=== PATIENT | male | born 1970 | race Caucasian/White ===

== ENCOUNTER → 2018-02-03 | Outpatient (CLI) | payer OTHER ==
--- NOTE | 2018-02-03 11:52 | XR ---
EXAM TYPE: LUMBAR SPINE X RAY SERIES COMPARISON: NONE HISTORY: Back pain TECHNIQUE: Three views are submitted. FINDINGS: Alignment is anatomic. The pedicles are intact. The transverse processes are intact. There is no s pondylolisthesis. Hypertrophic and degenerative changes spine are noted. Most marked findings at L2- L3. Changes of sacroiliitis are noted bilaterally greater on the right. IMPRESSION: 1. Hypertrophic and degenerative changes with the most marked findings at L2-L3. Recommend follow-up MRI. 2. 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
== END ==
LOC: RADXRMAIN 11:01
PROVIDERS: ATTEND Physician Assistant
DX: M47.816 Spondylosis without myelopathy or radiculopathy, lumbar region (principal)
CPT/HCPCS: 72100

== ENCOUNTER 2018-03-31 07:01 | Day surgery (SDC) | payer OTHER ==
[2018-03-28 12:54] VITALS: BMI 25.1
[~2018-03-31 07:01] MED LIST: DEXAMETHASONE SOD PHOSPHATE 10 MG/ML 1 ML VIAL IV ONE; HEPARIN SODIUM,PORCINE 5,000 UNIT/ML 1 ML VIAL SQ ONE; HYDROmorphone 0.5 MG/0.5 ML SYRINGE IVP PRN; LACTATED RINGERS 1,000 ML IV SCH; ONDANSETRON 4 MG/2 ML VIAL IVP ONE; ceFAZolin IN SWFI 2 GM/20 ML SYRINGE IVP ONE; metroNIDAZOLE-NS PMX 500 MG in SALINE 1 100ML.BAG IVPB ONE
[2018-03-31 07:21] VITALS: RESP 16
[2018-03-31] MEDS ORDERED: LIDOCAINE 1% 20 ML VIAL (10MG/ML) FOR IV START INTRADERMA ONE (07:25)
[2018-03-31] MEDS ORDERED: BUPIVACAINE (PF) 0.5% 30 ML VIAL SQ ONE ×2 (07:29→08:37)
--- NOTE | 2018-03-31 07:46 | P.GSHP ---
History of Present Illness H&P Date: 03/31/18 Chief Complaint: Pilonidal cyst This a 47-year-old male who presents today for excision of a chronically infected pilonidal cyst. Patient's had pilonidal cyst for several years. This has worsened with multiple tracts. His had multiple abscesses. Patient presents today for excision. He understands that we'll be packed after surgery. Past Medical History Additional Past Medical History / Comment(s): PILONIDAL CYST History of Any Multi-Drug Resistant Organisms: None Reported Past Surgical History: No Surgical Hx Reported Past Anesthesia/Blood Transfusion Reactions: No Reported Reaction Additional Past Anesthesia/Blood Transfusion Reaction / Comment(s): NO PRIOR SURGICAL HX Smoking Status: Current every day smoker - Past Family History Mother Family Medical History: Cancer Medications and Allergies Home Medications Medication Instructions Recorded Confirmed Type Gabapentin [Neurontin] 400 mg PO TID 03/28/18 03/31/18 History Allergies Allergy/AdvReac Type Severity Reaction Status Date / Time No Known Allergies Allergy Verified 03/31/18 07:14 Surgical - Exam Vital Signs Temp Pulse Resp BP Pulse Ox 98.5 F 78 16 151/84 98 03/31/18 07:19 03/31/18 07:19 03/31/18 07:19 03/31/18 07:19 03/31/18 07:19 - General well developed, no distress - Eyes PERRL - ENT normal pinna - Neck no masses - Respiratory normal expansion - Cardiovascular Rhythm: regular - Abdomen Abdomen: soft, non tender Assessment and Plan Assessment: Pilonidal cyst. We'll perform excision.
[2018-03-31] MEDS ORDERED: fentaNYL (PF) 50 MCG/ML 2 ML AMP ONE (07:49)
[2018-03-31] MEDS ORDERED: MIDAZOLAM 2 MG/2 ML VIAL ONE (07:49)
[2018-03-31 09:00] VITALS: TEMP 98
[2018-03-31 12:18] VITALS: BP 135/69; PULSE 62
--- NOTE | 2018-04-25 15:23 | P.OP ---
Date of Procedure: 03/31/18 Preoperative Diagnosis: Pilonidal cyst Postoperative Diagnosis: Pilonidal cyst Procedure(s) Performed: Excision of pilonidal cyst Anesthesia: MAC Surgeon: Joaquin Aceves Estimated Blood Loss (ml): 5 Pathology: other (Pilonidal cyst) Condition: stable Disposition: PACU Description of Procedure: The patient's placed on the operating table in the prone jackknife position. He received IV sedation. His gluteal area was prepped and draped usual sterile fashion. The patient had a pilonidal cyst. Using a 15 blade in elliptical skin incision was made around the pilosis. Then using much cautery and the Harmonic scissors the palatal cyst was dissected free. The Bovie was used for hemostasis. The skin was left open. The wound was packed with wet-to-dry gauze. Patient top she will was sent to recovery room stable condition.
== END 2018-03-31 12:43 | disposition home or self-care (01) ==
LOC: OR 07:01
PROVIDERS: ATTEND Surgery
DX: L05.01 Pilonidal cyst with abscess (principal); F17.210 Nicotine dependence, cigarettes, uncomplicated; Z79.899 Other long term (current) drug therapy
CPT/HCPCS: 88304; 11770; J2250; J1644; J1100; J2405; J3010; J0690